=== PATIENT | female | born 1965 | race Caucasian/White ===

== ENCOUNTER 2018-11-20 08:59 | Outpatient (CLI) | payer OTHER ==
[2013-04-16 16:14] VITALS: BP 136/82
[2018-11-20 09:46] LABS: MEAN CORPUSCULAR HEMOGLOBIN 31.9 pg (28.0-34.0)
[2018-11-20 09:47] LABS: BASOPHILS % 0.4 (0.0-1.5); EOSINOPHILS % 3.1 % (0.0-6.8); MONOCYTES % 5.7 % (0.0-11.0); NEUTROPHILS # 4.2 # k/uL (1.4-7.7)
[2018-11-20 09:59] LABS: eGFR (Non-African) > 60
[2018-11-20 10:00] LABS: APPEARANCE,URINE CLEAR (CLEAR); COLOR,URINE YELLOW (YELLOW)
[2018-11-20 10:01] LABS: OCCULT BLOOD,URINE TRACE-INTACT (NEGATIVE); UROBILINOGEN URINE 0.2 Eu (0.2-1.0)
== END 2018-11-20 09:08 ==
LOC: LAB 08:59
PROVIDERS: ATTEND Nurse Practitioner Family
DX: L73.2 Hidradenitis suppurativa (principal); E03.4 Atrophy of thyroid (acquired); E78.2 Mixed hyperlipidemia; G47.33 Obstructive sleep apnea (adult) (pediatric); Z79.899 Other long term (current) drug therapy
CPT/HCPCS: 36415; 80053; 81002; 84443; 85025; 86703; 86803; 87340

== ENCOUNTER 2019-02-01 12:31 | Outpatient (CLI) | payer OTHER ==
[2013-04-16 16:14] VITALS: BP 136/82
[2019-02-01 12:49] LABS: BASOPHILS % 0.9 (0.0-1.5); EOSINOPHILS % 3.8 % (0.0-6.8); MEAN CORPUSCULAR HEMOGLOBIN 32.9 pg (28.0-34.0); MONOCYTES % 8.4 % (0.0-11.0); NEUTROPHILS # 1.4 # k/uL (1.4-7.7)
[2019-02-01 13:42] LABS: eGFR (Non-African) > 60
== END 2019-02-01 12:33 ==
LOC: LAB 12:31
PROVIDERS: ATTEND Nurse Practitioner Family
DX: J06.9 Acute upper respiratory infection, unspecified (principal); Z79.899 Other long term (current) drug therapy
CPT/HCPCS: 36415; 80053; 85025; 87400